=== PATIENT | female | born 1940 | race Caucasian/White ===

== ENCOUNTER → 2017-06-16 | Outpatient (CLI) | payer MEDICARE, BC ==
--- NOTE | 2017-06-16 19:45 | MR ---
EXAMINATION TYPE: MR cervical spine wo con DATE OF EXAM: 06/16/2017 COMPARISON: NONE HISTORY: Radiculopathy TECHNIQUE: Multiplanar, multisequence images of the cervical spine were acquired. C2-C3: No evidence for degenerative disc disease. No disc bulge/herniation or protrusion. No Canal stenosis. Foramina are patent bilaterally. C3-C4: Mild disc bulging. No Canal stenosis. No foraminal encroachment. Facet arthropathy noted with mild bilateral uncovertebral joint hypertrophy and mild right-sided foraminal encroachment. C4-C5: Degenerative disc disease. There is bilateral uncovertebral joint hypertrophy and facet arthro ino. Mild right-sided foraminal encroachment. No Canal stenosis. Mild disc bulging noted. C5-C6: Moderate degenerative disc disease. Minimal broad-based central disc bulging seen. Hypertrophy of the ligamentum flavum noted. Uncovertebral joint hypertrophy greater on the right. C6-C7: Moderate degenerative disc disease. There is mild right paracentral broad-based disc protrusio n with effacement of thecal sac.. C7-T1: Neural foramina are patent. No Canal stenosis. No disc herniation. Mild diffuse central disc b ulging. Cervical segments are intact. There is normal alignment. Cervical spinal cord is of normal signal. Craniovertebral junction relationships are within normal limits. Nerve root sleeve diverticulum at T1-T2 IMPRESSION: 1. Multilevel degenerative disc disease with most marked findings at C5-6 and C6-C7. 2. Multilevel disc bulging with broad-based right paracentral disc protrusion C6-C7 resulting in mild effacement of thecal sac.
== END | disposition home or self-care (01) ==
LOC: RADMRIMAIN 10:48
PROVIDERS: ATTEND Psychiatry & Neurology Neurology
DX: M50.123 Cervical disc disorder at C6-C7 level with radiculopathy (principal)
CPT/HCPCS: 72141

== ENCOUNTER 2020-03-14 15:55 | Observation (INO) | payer MEDICARE, BC ==
--- NOTE | 2020-03-14 16:04 | ED ---
General Adult HPI - General Chief complaint: Chest Pain Stated complaint: Chest pain Time Seen by Provider: 03/14/20 15:58 Source: patient, EMS Mode of arrival: EMS Limitations: no limitations - History of Present Illness Initial comments: Patient presents the ED by ambulance for evaluation with her son at bedside. Patient states that she has had intermittent left-sided chest pressure since last night. Patient states that her chest pain radiates to her left arm and left neck. Patient also admits to having associated dyspnea. Patient is also complaining of having left buttock pain that radiates down her left leg for the past few days. Patient has a history of cardiac bypass. Patient denies trauma or injury, fever or chills, headache, focal numbness/weakness/neuro deficit, upper back pain, pleuritic pain, nausea/vomiting/diaphoresis, abdominal pain, urinary symptoms, incontinence/urinary retention, leg or calf swelling or pain, or any other symptoms or complaints. Patient was given aspirin and nitroglycerin by EMS. Patient reports that her chest pain is currently very mild. - Related Data Home Medications Medication Instructions Recorded Confirmed Aspirin 81 mg PO DAILY 08/07/16 08/13/16 Atorvastatin [Lipitor] 20 mg PO HS 08/07/16 08/13/16 Diltiazem Cd [Cardizem CD] 120 mg PO DAILY 08/07/16 08/13/16 Docusate [Colace] 100 mg PO DAILY 08/07/16 08/13/16 FLUoxetine HCL [PROzac] 20 mg PO DAILY 08/07/16 08/13/16 Gabapentin [Neurontin] 300 mg PO TID 08/07/16 08/13/16 Isosorbide Mononitrate ER [Imdur] 30 mg PO DAILY 08/07/16 08/13/16 LORazepam [Ativan] 0.5 mg PO BID PRN 08/07/16 08/13/16 Nitroglycerin Sl Tabs [Nitrostat] 0.4 mg SUBLINGUAL Q5M PRN 08/07/16 08/13/16 Polyethylene Glycol 3350 [Miralax] 17 gm PO DAILY 08/07/16 08/13/16 Sucralfate [Carafate] 1 gm PO ACHS 08/07/16 08/13/16 traMADol HCL [Ultram] 50 mg PO Q6HR PRN 08/07/16 08/13/16 Losartan [Cozaar] 25 mg PO DAILY 08/10/16 08/13/16 Hydrocodone/Acetaminophen [[place] 1 - 2 tab PO Q6HR PRN 08/13/16 08/13/16 5-325] methylPREDNISolone [Medrol Dose 4 mg PO DIRECTED 08/16/16 08/16/16 Pack] Previous Rx's Medication Instructions Recorded Dicyclomine [Bentyl] 10 mg PO TID PRN #20 capsule 08/09/16 Pantoprazole [Protonix] 40 mg PO AC-BRKFST #30 tablet. 08/09/16 Clindamycin HCl 300 mg PO Q12HR #14 cap 08/11/16 Azithromycin [Zithromax Tri-Jadon] 500 mg PO DAILY #3 tab 08/16/16 Allergies Allergy/AdvReac Type Severity Reaction Status Date / Time Penicillins Allergy Rash/Hives Verified 03/14/20 16:01 Review of Systems ROS Statement: Those systems with pertinent positive or pertinent negative responses have been documented in the HPI. ROS Other: All systems not noted in ROS Statement are negative. Past Medical History Past Medical History: Chest Pain / Angina, GERD/Reflux, Hearing Disorder / Deafness, Hyperlipidemia, Hypertension Additional Past Medical History / Comment(s): IBS, diverticulosis, History of Any Multi-Drug Resistant Organisms: None Reported Past Surgical History: Cholecystectomy, Heart Catheterization, Heart Cat heterization With Stent, Hysterectomy, Joint Replacement Additional Past Surgical History / Comment(s): L knee replacement 2012, pilonidal cyst removal Past Anesthesia/Blood Transfusion Reactions: No Reported Reaction Date of Last Stent Placement:: 2008 Past Psychological History: Anxiety Smoking Status: Current every day smoker Past Alcohol Use History: None Reported Past Drug Use History: None Reported - Past Family History Father Family Medical History: CVA/TIA Additional Family Medical History / Comment(s): MOTHER ID WELL SIBLINGS WITH ID OR CAD Mother Family Medical History: Myocardial Infarction (ID) Brother(s) Family Medical History: Cancer Sister(s) Family Medical History: Cancer General Exam Limitations: no limitations General appearance: alert, in no apparent distress Head exam: Present: atraumatic, normocephalic Eye exam: Present: normal appearance, EOMI ENT exam: Present: mucous membranes moist Neck exam: Present: other (Trachea is in midline) Respiratory exam: Present: normal lung sounds bilaterally. Absent: respiratory distress, wheezes, rales, rhonchi, stridor, chest wall tenderness Cardiovascular Exam: Present: regular rate, normal rhythm, normal heart sounds, other (Normal radial pulses bilaterally) GI/Abdominal exam: Present: soft. Absent: distended, tenderness, guarding Extremities exam: Present: full ROM. Absent: tenderness, pedal edema, calf tenderness Back exam: Present: normal inspection, full ROM. Absent: tenderness Neurological exam: Present: alert, oriented X3, CN II-XII intact, other (Patient has no evidence of saddle anesthesia or lower extremity neurological deficit on exam). Absent: motor sensory deficit Psychiatric exam: Present: anxious Skin exam: Present: warm, dry, intact, normal color Course Vital Signs 03/14/20 03/14/20 15:56 16:01 Temperature 98.5 F Pulse Rate 59 L Respiratory 18 Rate Blood Pressure 178/83 O2 Sat by Pulse 97 Oximetry - Reevaluation(s) Reevaluation #1: 03/14/20 17:15 Case, H&P, test results and ED/EMS management were discussed with Dr. Irizarry. He recommends placing an order for cardiology consultation. He has no further recommendations at this time. 03/14/20 17:18 Patient states that her pain has now improved, and she denies development of any new symptoms while in the ED. Patient remains alert and breathing comfortably. Patient is aware of her test results, and she agrees with hospital admission at this time. EKG Findings - EKG Comments: EKG Findings:: Sinus bradycardia, ventricular rate of 59 bpm, no ectopy, normal MN and QRS intervals, normal QT interval, normal axis, incomplete right bundle branch block, nonspecific T-wave abnormality Medical Decision Making - Medical Decision Making Patient's EKG is nonischemic in appearance at this time. Patient's chest x-ray shows no acute abnormality. Patient's troponin is negative. Patient has a heart score 5. Will admit the patient to the hospital for further evaluation of her chest pain. Dr. Irizarry has accepted hospital admission. - Lab Data Result diagrams: 03/14/20 16:04 03/14/20 15:59 Lab Results 03/14/20 03/14/20 03/14/20 Range/Units 15:59 15:59 15:59 WBC (3.8-10.6) k/uL RBC (3.80-5.40) m/uL Hgb (11.4-16.0) gm/dL Hct (34.0-46.0) % MCV (80.0-100.0) fL MCH (25.0-35.0) pg MCHC (31.0-37.0) g/dL RDW (11.5-15.5) % Plt Count (150-450) k/uL Neutrophils % % Lymphocytes % % Monocytes % % Eosinophils % % Basophils % % Neutrophils # (1.3-7.7) k/uL Lymphocytes # (1.0-4.8) k/uL Monocytes # (0-1.0) k/uL Eosinophils # (0-0.7) k/uL Basophils # (0-0.2) k/uL Hypochromasia PT 10.2 (9.0-12.0) sec INR 1.0 (<1.2) APTT 23.2 (22.0-30.0) sec Sodium 138 (137-145) mmol/L Potassium 4.3 (3.5-5.1) mmol/L Chloride 107 (98-107) mmol/L Carbon Dioxide 25 (22-30) mmol/L Anion Gap 6 mmol/L BUN 25 H (7-17) mg/dL Creatinine 0.85 (0.52-1.04) mg/dL Est GFR (CKD-EPI)AfAm 75 (>60 ml/min/1.73 sqM) Est GFR (CKD-EPI)NonAf 65 (>60 ml/min/1.73 sqM) Glucose 97 (74-99) mg/dL Calcium 9.5 (8.4-10.2) mg/dL Magnesium 2.4 H (1.6-2.3) mg/dL Total Bilirubin 0.4 (0.2-1.3) mg/dL AST 20 (14-36) U/L ALT 12 (4-34) U/L Alkaline Phosphatase 77 (38-126) U/L Troponin I <0.012 (0.000-0.034) ng/mL NT-Pro-B Natriuret Pep pg/mL Total Protein 6.6 (6.3-8.2) g/dL Albumin 3.9 (3.5-5.0) g/dL 03/14/20 03/14/20 Range/Units 15:59 16:04 WBC 6.4 (3.8-10.6) k/uL RBC 4.68 (3.80-5.40) m/uL Hgb 12.0 (11.4-16.0) gm/dL Hct 38.6 (34.0-46.0) % MCV 82.4 (80.0-100.0) fL MCH 25.7 (25.0-35.0) pg MCHC 31.2 (31.0-37.0) g/dL RDW 14.8 (11.5-15.5) % Plt Count 273 (150-450) k/uL Neutrophils % 60 % Lymphocytes % 25 % Monocytes % 7 % Eosinophils % 3 % Basophils % 1 % Neutrophils # 3.9 (1.3-7.7) k/uL Lymphocytes # 1.6 (1.0-4.8) k/uL Monocytes # 0.5 (0-1.0) k/uL Eosinophils # 0.2 (0-0.7) k/uL Basophils # 0.0 (0-0.2) k/uL Hypochromasia Slight PT (9.0-12.0) sec INR (<1.2) APTT (22.0-30.0) sec Sodium (137-145) mmol/L Potassium (3.5-5.1) mmol/L Chloride (98-107) mmol/L Carbon Dioxide (22-30) mmol/L Anion Gap mmol/L BUN (7-17) mg/dL Creatinine (0.52-1.04) mg/dL Est GFR (CKD-EPI)AfAm (>60 ml/min/1.73 sqM) Est GFR (CKD-EPI)NonAf (>60 ml/min/1.73 sqM) Glucose (74-99) mg/dL Calcium (8.4-10.2) mg/dL Magnesium (1.6-2.3) mg/dL Total Bilirubin (0.2-1.3) mg/dL AST (14-36) U/L ALT (4-34) U/L Alkaline Phosphatase (38-126) U/L Troponin I (0.000-0.034) ng/mL NT-Pro-B Natriuret Pep 338 pg/mL Total Protein (6.3-8.2) g/dL Albumin (3.5-5.0) g/dL - Radiology Data Radiology results: report reviewed (Chest x-ray shows chronic changes without acute cardiopulmonary process) Disposition Clinical Impression: Chest pain, Sciatica Disposition: ADMITTED IP TO THIS [facility] Condition: Stable Is patient prescribed a controlled substance at d/c from ED?: No Referrals: Forest Suresh DO [Primary Care Provider] - 1-2 days Time of Disposition: 17:16
[2020-03-14] MEDS ORDERED: MORPHINE SULFATE 2 MG/ML SYRINGE IVP STA (16:14)
[2020-03-14] MEDS ORDERED: ONDANSETRON 4 MG/2 ML VIAL IVP STA (16:15)
[2020-03-14 16:26] LABS: Albumin 3.9 g/dL (3.5-5.0); Calcium 9.5 mg/dL (8.4-10.2); Magnesium 2.4 mg/dL (1.6-2.3); Potassium 4.3 mmol/L (3.5-5.1); Total Bilirubin 0.4 mg/dL (0.2-1.3); Total Protein 6.6 g/dL (6.3-8.2)
[2020-03-14 16:27] LABS: Basophils % (A) 1 %; Eosinophils # (A) 0.2 k/uL (0-0.7); Eosinophils % (A) 3 %; HCT 38.6 % (34.0-46.0); Hypochromasia Slight; Lymphocytes # (A) 1.6 k/uL (1.0-4.8); Lymphocytes % (A) 25 %; MCH 25.7 pg (25.0-35.0); MCHC 31.2 g/dL (31.0-37.0); MCV 82.4 fL (80.0-100.0); Mean Platelet Volume 8.2; Monocytes # (A) 0.5 k/uL (0-1.0); Monocytes % (A) 7 %; Neutrophils # (A) 3.9 k/uL (1.3-7.7); Neutrophils % (A) 60 %; Platelet Count 273 k/uL (150-450); RBC 4.68 m/uL (3.80-5.40); RDW 14.8 % (11.5-15.5); WBC 6.4 k/uL (3.8-10.6)
[2020-03-14 16:32] LABS: Partial Thromboplastin Time 23.2 sec (22.0-30.0); Prothrombin Time 10.2 sec (9.0-12.0)
--- NOTE | 2020-03-14 16:37 | XR ---
EXAMINATION TYPE: XR chest 2V DATE OF EXAM: 03/14/2020 COMPARISON: 10/14/2015 HISTORY: 79-year-old female with chest pain TECHNIQUE: AP and lateral views FINDINGS: Median sternotomy wires are present. Heart upper limits of normal in size. Mild interstitial prominen ce is unchanged. No consolidation or pleural effusion. IMPRESSION: Chronic changes without acute cardiopulmonary process.
[2020-03-14] MEDS ORDERED: NITROGLYCERIN OINT 1 INCH/GM PACKET TOPICAL STA (16:48)
[2020-03-14] MEDS ORDERED: NALOXONE 0.4 MG/ML 1 ML VIAL IV PRN (17:16)
[2020-03-14] MEDS ORDERED: MORPHINE SULFATE 4 MG/ML SYRINGE IVP STA (17:41)
[2020-03-14] MEDS ORDERED: Acetaminophen-Codeine 300-30mg TAB PO PRN (21:04)
[2020-03-14] MEDS ORDERED: METOCLOPRAMIDE 5 MG TAB PO PRN (21:04)
[2020-03-14] MEDS ORDERED: FLUTICASONE 50MCG/SPRAY NASAL 16GM EA NOSTRIL PRN (21:04)
[2020-03-14] MEDS ORDERED: ALBUTEROL NEBULIZED 2.5 MG/3 ML INHALATION PRN (21:04)
[2020-03-14] MEDS: carvediloL 3.125 MG TAB PO SCH (23:19)
[2020-03-14] MEDS: CLOPIDOGREL 75 MG TAB PO SCH (23:19)
[2020-03-14] MEDS: ATORVASTATIN 20 MG TAB PO SCH (23:19)
[2020-03-14] MEDS: GABAPENTIN 300 MG CAP PO SCH (23:19)
[2020-03-14] MEDS: APIXABAN 5 MG TAB PO SCH (23:19)
[2020-03-14] MEDS: ZOLPIDEM 5 MG TAB PO SCH (23:20)
--- NOTE | 2020-03-15 01:15 | P.HPIM ---
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 Patient states that she felt left retrosternal pressure- like sensation which is radiating down to her left arm and also to the back and all the way down to her left sciatic nerve. Patient states that she also had shooting down pain from her hip. Patient states that she had episodes of vomiting x2. Denied any headache. Patient states that she always had dizziness and lightheadedness. She feels very weak and depressed. Patient otherwise denied any complaints of fall or trauma. No fever no chills. No focal weakness. No dysuria or hematuria. No cough or sputum production. Denies any shortness of breath. Patient was given aspirin and nitroglycerin sublingual. Currently denies any c omplaints of chest pain. Chest x-ray showed chronic changes without acute cardiopulmonary process EKG showed sinus bradycardia with heart rate 59. Laboratory data showed WBC 6.4, hemoglobin 12.0 and platelets 273 INR 1.0 Sodium 138, potassium 4.3, chloride 103, BUN 24 and creatinine 0.85 Liver enzymes are within normal limits. Troponin x2- proBNP 338 blood pressure was 178/83 on admission. Review of Systems Constitutional: Patient denies any fever or chills . No generalized weakness or weight loss. Abdomen: Patient denied nausea vomiting and diarrhea and abdominal pain. Cardiovascular: Patient complains of chest pain without shortness of breath. no palpitations. No leg swelling. Respiratory: patient denied any cough is from production. No shortness of breath Neurologic: Patient denied any numbness or tingling headache. Musculoskeletal: Patient denies any complaints of joint swelling or deformity. Left sciatic nerve pain. Skin: Negative Psychiatric: Negative Endocrine: No heat or cold intolerance. No recent weight gain. Genitourinary: No dysuria or hematuria. All other 14 point ROS negative except the above Past Medical History Past Medical History: Chest Pain / Angina, GERD/Reflux, Hearing Disorder / Deafness, Hyperlipidemia, Hypertension Additional Past Medical History / Comment(s): IBS, diverticulosis, History of Any Multi-Drug Resistant Organisms: None Reported Past Surgical History: Cholecystectomy, Heart Catheterization, Heart Catheterization With Stent, Hysterectomy, Joint Replacement Additional Past Surgical History / Comment(s): L knee replacement 2012, pilonidal cyst removal Past Anesthesia/Blood Transfusion Reactions: No Reported Reaction Date of Last Stent Placement:: 2008 Past Psychological History: Anxiety Smoking Status: Current every day smoker Past Alcohol Use History: None Reported Past Drug Use History: None Reported - Past Family History Father Family Medical History: CVA/TIA Additional Family Medical History / Comment(s): MOTHER OK WELL SIBLINGS WITH OK OR CAD Mother Family Medical History: Myocardial Infarction (OK) Brother(s) Family Medical History: Cancer Sister(s) Family Medical History: Cancer Medications and Allergies Home Medications Medication Instructions Recorded Confirmed Type Gabapentin [Neurontin] 300 mg PO TID 08/07/16 03/14/20 History Acetaminophen-Codeine 300-30mg 1 tab PO Q6H PRN 03/14/20 03/14/20 History [Tylenol w/codeine #3] Albuterol Sulfate [Albuterol 1 puff PO RT-Q6H PRN 03/14/20 03/14/20 History Sulfate Hfa] Apixaban [Eliquis] 5 mg PO BID 03/14/20 03/14/20 History Carvedilol [Coreg] 3.125 mg PO BID 03/14/20 03/14/20 History Clopidogrel Bisulfate [Plavix] 75 mg PO DAILY 03/14/20 03/14/20 History Fluticasone Nasal [place] [Flonase 1 spray EA NOSTRIL DAILY PRN 03/14/20 03/14/20 History Nasal [place]] Loratadine [Claritin] 10 mg PO DAILY 03/14/20 03/14/20 History Metoclopramide HCl [Reglan] 5 mg PO TID PRN 03/14/20 03/14/20 History Omeprazole 20 mg PO DAILY 03/14/20 03/14/20 History Zolpidem Tartrate [Ambien] 5 mg PO HS 03/14/20 03/14/20 History Allergies Allergy/AdvReac Type Severity Reaction Status Date / Time Penicillins Allergy Rash/Hives Verified 03/14/20 20:27 Physical Exam Vitals: Vital Signs Temp Pulse Pulse Resp BP BP Pulse Ox 03/14/20 18:47 97.7 F 57 L 14 197/76 100 03/14/20 18:03 98 F 68 18 182/77 98 03/14/20 17:32 61 18 191/91 98 03/14/20 16:01 59 L 18 178/83 97 03/14/20 15:56 98.5 F Intake and Output 03/14/20 03/14/20 03/14/20 06:59 14:59 22:59 Other: Weight 67.585 kg PHYSICAL EXAMINATION: Patient is lying in the bed comfortably, no acute distress, awake alert and oriented.. HEENT: Normocephalic. Neck is supple. Pupils reactive. Nostrils clear. Oral cavity is moist. Ears reveal no drainage. Neck reveals no JVD, carotid bruits, or thyromegaly. CHEST EXAMINATION: Trachea is central. Symmetrical expansion. Lung hess clear to auscultation and percussion. CARDIAC: Normal S1, S2 with no gallops. No murmurs ABDOMEN: Soft. Bowel sounds normal. No organomegaly. No abdominal bruits. Extremities: reveal no edema. No clubbing or cyanosis Neurologically awake, alert, oriented x3 with well-coordinated movements. No focal deficits noted Skin: No rash or skin lesions. Psychiatric: Coperative. Nonsuicidal Musculoskeletal: No joint swelling or deformity. Normal range of motion. Results CBC & Chem 7: 03/15/20 06:21 03/15/20 06:22 Labs: Abnormal Lab Results - Last 24 Hours (Table) 03/14/20 Range/Units 15:59 BUN 25 H (7-17) mg/dL Magnesium 2.4 H (1.6-2.3) mg/dL Thrombosis Risk Factor Assmnt - DVT/VTE Prophylaxis DVT/VTE Prophylaxis: Pharmacologic Prophylaxis ordered Assessment and Plan Assessment: Atypical chest pain with a known history of coronary artery disease. Rule out ACS. Paroxysmal atrial fibrillation on anticoagulation with Eliquis. Left sciatic nerve pain. lumbar radiculopathy, lumbar spinal stenosis Chronic back pain and weakness. Coronary artery disease history of bypass graft and stent placement Uncontrolled hypertension GERD Hyperlipidemia Peripheral vascular disease with history of femoral stent placement History of CVA/TIA DVT prophylaxis patient is already on anticoagulation with Eliquis Plan: Patient will be continued on telemetry monitoring. Serial EKG and troponin x2-. Continue with home medications and titrate blood pressure medications. Cardiology was consulted. Continue with pain management with Tylenol 3. Further recommendations based on clinical course Time with Patient: Greater than 30
[2020-03-15] MEDS ORDERED: KETOROLAC 30 MG/ML 1 ML VIAL IVP STA (05:04)
[2020-03-15] MEDS: PANTOPRAZOLE 40 MG TABLET PO SCH (06:50)
[2020-03-15 07:25] LABS: Basophils # (A) 0.1 k/uL (0-0.2); Basophils % (A) 1 %; Eosinophils # (A) 0.4 k/uL (0-0.7); Eosinophils % (A) 6 %; HCT 38.4 % (34.0-46.0); HGB 11.3 gm/dL (11.4-16.0); Hypochromasia Moderate; Lymphocytes # (A) 1.9 k/uL (1.0-4.8); Lymphocytes % (A) 26 %; MCH 24.8 pg (25.0-35.0); MCHC 29.4 g/dL (31.0-37.0); MCV 84.4 fL (80.0-100.0); Mean Platelet Volume 8.6; Monocytes # (A) 0.7 k/uL (0-1.0); Monocytes % (A) 9 %; Neutrophils # (A) 4.1 k/uL (1.3-7.7); Neutrophils % (A) 55 %; Platelet Count 222 k/uL (150-450); RBC 4.55 m/uL (3.80-5.40); RDW 14.9 % (11.5-15.5); WBC 7.5 k/uL (3.8-10.6)
[2020-03-15 07:31] LABS: Albumin 3.4 g/dL (3.5-5.0); Calcium 9.1 mg/dL (8.4-10.2); Potassium 4.9 mmol/L (3.5-5.1); Total Bilirubin 0.3 mg/dL (0.2-1.3)
[2020-03-15] MEDS ORDERED: Acetaminophen-Codeine 300-30mg TAB PO PRN (08:00)
[2020-03-15] MEDS ORDERED: DILTIAZEM CD 120 MG CAP.ER.24H PO SCH (09:00)
[2020-03-15] MEDS ORDERED: ISOSORBIDE MONONITRATE ER 30 MG TAB.ER.24H PO SCH (09:00)
[2020-03-15] MEDS ORDERED: LOSARTAN 25 MG TAB PO SCH (09:00)
[2020-03-15] MEDS: LORATADINE 10 MG TAB PO SCH (09:10)
[2020-03-15] MEDS: FLUoxetine HCL 20 MG CAP PO SCH ×2 (09:10→09:16)
[2020-03-15] MEDS: carvediloL 3.125 MG TAB PO SCH ×2 (09:10→17:05)
[2020-03-15] MEDS: APIXABAN 5 MG TAB PO SCH ×2 (09:10→21:39)
[2020-03-15] MEDS: GABAPENTIN 300 MG CAP PO SCH ×3 (09:10→21:39)
[2020-03-15] MEDS: CLOPIDOGREL 75 MG TAB PO SCH (09:10)
[2020-03-15] MEDS ORDERED: ONDANSETRON 4 MG/2 ML VIAL IVP STA (09:58)
--- NOTE | 2020-03-15 10:30 | P.CRDCN ---
History of Present Illness History of present illness: HISTORY OF PRESENTING ILLNESS This is a pleasant 79-year-old female past medical history significant for coronary artery disease status post bypass grafting approximately 3 years a go at [facility], paroxysmal atrial fibrillation on long-term anticoagulation, hypertension, dyslipidemia, peripheral vascular disease and chronic nicotine dependence. She follows in the office with Dr. Driver out of [facility]. We have been asked to see in consultation for chest pain. She states for the previous couple of weeks she has not been feeling well. She feels increasingly weak, worsening dyspnea, pain in the left hip that radiates down the left leg and discomfort in the left precordial region. Her chest discomfort is exacerbated by deep inspiration or movement of her torso. It is mildly reproducible on deep palpation. DIAGNOSTICS EKG reveals sinus bradycardia heart rate of 59 with right bundle branch block. Chest xray mild interstitial prominence with no acute cardiopulmonary process. Laboratory reviewed, WBC 7.5, hemoglobin 11.3, platelets 222, sodium 138, potassium 4.9, creatinine 0.94, magnesium 2.4, cardiac enzymes negative 3, NT proBNP 338, TSH 3.88. Current cardiac medications include Eliquis 5 mg twice a day, carvedilol 3.125 mg twice a day, Plavix 75 mg daily. REVIEW OF SYSTEMS At the time of my exam: CONSTITUTIONAL: Denies fever or chills. CARDIOVASCULAR: Denies chest pain, shortness of breath, orthopnea, PND or palpitations. RESPIRATORY: Denies cough. GASTROINTESTINAL: Denies abdominal pain, diarrhea, constipation, nausea or vomiting. MUSCULOSKELETAL: Complains of discomfort in the left hip shooting down the left leg. NEUROLOGIC: Denies numbness, tingling or weakness. ENDOCRINE: Denies fatigue, weight change, polydipsia or polyurina. GENITOURINARY: Denies burning, hematuria or urgency with micturation. HEMATOLOGIC: Denies history of anemia or bleeding. PHYSICAL EXAMINATION Blood pressure 163/73 heart rate 53 afebrile and maintaining oxygen saturation on nasal cannula. CONSTITUTIONAL: No apparent distress. HEENT: Head is normocephalic. Pupils are equal, round. Sclerae anicteric. Mucous membranes of the mouth are moist. No JVD. Right carotid bruit. CHEST EXAMINATION: Lungs are clear to auscultation. Positive left anterior chest wall tenderness is noted on palpation and with deep breathing. Diminished bilaterally. HEART EXAMINATION: Regular rate and rhythm. S1, S2 heard. No murmurs, gallops or rub. ABDOMEN: Soft, nontender. Positive bowel sounds. EXTREMITIES: 2+ peripheral pulses, no lower extremity edema and no calf tenderness. NEUROLOGIC EXAMINATION: Patient is awake, alert and oriented x3. ASSESSMENT Pain, pleuritic. Atypical for angina. An acute coronary event has been ruled out. Left hip pain with radiation down the left leg suggestive of sciatica Coronary artery disease status post bypass grafting Paroxysmal atrial fibrillation on long-term anticoagulation currently maintaining sinus mechanism Peripheral vascular disease, patient states she has A 70% blockage of her carotid arteries Hypertension Dyslipidemia Chronic nicotine dependence PLAN An acute coronary event has been ruled out. Pain is pleuritic and atypical for angina. Check a d-dimer. Ongoing medical management and evaluation of multiple complaints. No further cardiac work-up at this time. Thank you kindly for this consultation. Nurse Practitioner note has been reviewed, I agree with a documented findings and plan of care. Patient was seen and examined. Past Medical History Past Medical History: Chest Pain / Angina, GERD/Reflux, Hearing Disorder / Deafness, Hyperlipidemia, Hypertension Additional Past Medical History / Comment(s): IBS, diverticulosis, History of Any Multi-Drug Resistant Organisms: None Reported Past Surgical History: Cholecystectomy, Heart Catheterization, Heart Catheterization With Stent, Hysterectomy, Joint Replacement Additional Past Surgical History / Comment(s): L knee replacement 2012, pilonidal cyst removal Past Anesthesia/Blood Transfusion Reactions: No Reported Reaction Date of Last Stent Placement:: 2008 Past Psychological History: Anxiety Smoking Status: Current every day smoker Past Alcohol Use History: None Reported Past Drug Use History: None Reported - Past Family History Father Family Medical History: CVA/TIA Additional Family Medical History / Comment(s): MOTHER ID WELL SIBLINGS WITH ID OR CAD Mother Family Medical History: Myocardial Infarction (ID) Brother(s) Family Medical History: Cancer Sister(s) Family Medical History: Cancer Medications and Allergies Home Medications Medication Instructions Recorded Confirmed Type Gabapentin [Neurontin] 300 mg PO TID 08/07/16 03/14/20 History Acetaminophen-Codeine 300-30mg 1 tab PO Q6H PRN 03/14/20 03/14/20 History [Tylenol w/codeine #3] Albuterol Sulfate [Albuterol 1 puff PO RT-Q6H PRN 03/14/20 03/14/20 History Sulfate Hfa] Apixaban [Eliquis] 5 mg PO BID 03/14/20 03/14/20 History Carvedilol [Coreg] 3.125 mg PO BID 03/14/20 03/14/20 History Clopidogrel Bisulfate [Plavix] 75 mg PO DAILY 03/14/20 03/14/20 History Fluticasone Nasal [place] [Flonase 1 spray EA NOSTRIL DAILY PRN 03/14/20 03/14/20 History Nasal [place]] Loratadine [Claritin] 10 mg PO DAILY 03/14/20 03/14/20 History Metoclopramide HCl [Reglan] 5 mg PO TID PRN 03/14/20 03/14/20 History Omeprazole 20 mg PO DAILY 03/14/20 03/14/20 History Zolpidem Tartrate [Ambien] 5 mg PO HS 03/14/20 03/14/20 History Allergies Allergy/AdvReac Type Severity Reaction Status Date / Time Penicillins Allergy Rash/Hives Verified 03/14/20 20:27 Physical Exam Vitals: Vital Signs Temp Pulse Pulse Resp BP BP Pulse Ox 03/15/20 03:00 98 F 51 L 16 97/53 99 03/14/20 21:00 97.9 F 57 L 18 169/54 99 03/14/20 18:47 97.7 F 57 L 14 197/76 100 03/14/20 18:03 98 F 68 18 182/77 98 03/14/20 17:32 61 18 191/91 98 03/14/20 16:01 59 L 18 178/83 97 03/14/20 15:56 98.5 F Intake and Output 03/14/20 03/15/20 03/15/20 22:59 06:59 14:59 Other: Voiding Method Toilet Toilet # Voids 1 1 Weight 67.585 kg Results 03/15/20 06:21 03/15/20 06:22 Cardiac Enzymes 03/14/20 03/14/20 03/14/20 Range/Units 15:59 15:59 18:45 AST 20 (14-36) U/L Troponin I <0.012 <0.012 (0.000-0.034) ng/mL 03/14/20 03/15/20 Range/Units 22:15 06:22 AST 19 (14-36) U/L Troponin I <0.012 (0.000-0.034) ng/mL Coagulation 03/14/20 Range/Units 15:59 PT 10.2 (9.0-12.0) sec APTT 23.2 (22.0-30.0) sec CBC 03/14/20 03/15/20 Range/Units 16:04 06:21 WBC 6.4 7.5 (3.8-10.6) k/uL RBC 4.68 4.55 (3.80-5.40) m/uL Hgb 12.0 11.3 L (11.4-16.0) gm/dL Hct 38.6 38.4 (34.0-46.0) % Plt Count 273 222 (150-450) k/uL Comprehensive Metabolic Panel 03/14/20 03/15/20 Range/Units 15:59 06:22 Sodium 138 138 (137-145) mmol/L Potassium 4.3 4.9 (3.5-5.1) mmol/L Chloride 107 110 H (98-107) mmol/L Carbon Dioxide 25 23 (22-30) mmol/L BUN 25 H 24 H (7-17) mg/dL Creatinine 0.85 0.94 (0.52-1.04) mg/dL Glucose 97 90 (74-99) mg/dL Calcium 9.5 9.1 (8.4-10.2) mg/dL AST 20 19 (14-36) U/L ALT 12 10 (4-34) U/L Alkaline Phosphatase 77 69 (38-126) U/L Total Protein 6.6 6.0 L (6.3-8.2) g/dL Albumin 3.9 3.4 L (3.5-5.0) g/dL Current Medications Generic Name Dose Route Start Last Admin Trade Name Freq PRN Reason Stop Dose Admin Acetaminophen/Codeine Phosphate 1 each 03/15/20 08:00 Tylenol #3 PO Q12H PRN Pain Albuterol Sulfate 2.5 mg 03/14/20 21:04 03/15/20 07:58 Ventolin Nebulized INHALATION 2.5 mg RT-Q6H PRN Administration Shortness Of Breath Apixaban 5 mg 03/14/20 21:15 03/14/20 23:19 Eliquis PO 5 mg BID CORTES Administration Atorvastatin Calcium 20 mg 03/14/20 21:00 03/14/20 23:19 Lipitor PO 20 mg HS CORTES Administration Carvedilol 3.125 mg 03/14/20 21:15 03/14/20 23:19 Coreg PO 3.125 mg AC-BID CORTES Administration Clopidogrel Bisulfate 75 mg 03/14/20 21:15 03/14/20 23:19 Plavix PO 75 mg DAILY [facility] Administration Diltiazem HCl 120 mg 03/15/20 09:00 Cardizem Cd PO DAILY [facility] Fluoxetine HCl 20 mg 03/15/20 09:00 Prozac PO DAILY [facility] Fluticasone Propionate 1 spray 03/14/20 21:04 Flonase Nasal [place] EA NOSTRIL DAILY PRN Allergy Symptoms Gabapentin 300 mg 03/14/20 22:00 03/14/20 23:19 Neurontin PO 300 mg TID [facility] Administration Isosorbide Mononitrate 30 mg 03/15/20 09:00 Imdur PO DAILY [facility] Loratadine 10 mg 03/15/20 09:00 Claritin PO DAILY [facility] Losartan Potassium 25 mg 03/15/20 09:00 Cozaar PO DAILY [facility] Metoclopramide HCl 5 mg 03/14/20 21:04 Reglan PO TID PRN Nausea Naloxone HCl 0.2 mg 03/14/20 17:16 Narcan IV Q2M PRN Opioid Reversal Pantoprazole Sodium 40 mg 03/15/20 07:30 03/15/20 06:50 Protonix PO 40 mg AC-BRKFST [facility] Administration Zolpidem Tartrate 5 mg 03/14/20 21:15 03/14/20 23:20 Ambien PO 5 mg HS [facility] Administration Intake and Output 03/14/20 03/15/20 03/15/20 22:59 06:59 14:59 Other: Voiding Method Toilet Toilet # Voids 1 1 Weight 67.585 kg 03/15/20 06:21 03/15/20 06:22
[2020-03-15 11:33] LABS: Cholesterol 201 mg/dL (<200); HDL Cholesterol 46 mg/dL (40-60); LDL Cholesterol,Calculated 130 mg/dL (0-99); Triglycerides 124 mg/dL (<150)
[2020-03-15] MEDS ORDERED: DICYCLOMINE 10 MG CAP PO PRN (12:48)
[2020-03-15] MEDS ORDERED: ONDANSETRON 4 MG/2 ML VIAL IVP PRN (12:49)
[2020-03-15] MEDS: ATORVASTATIN 20 MG TAB PO SCH (21:39)
[2020-03-15] MEDS: ZOLPIDEM 5 MG TAB PO SCH (21:39)
[2020-03-15] MEDS: Acetaminophen-Codeine 300-30mg TAB PO PRN (21:40)
[2020-03-16] MEDS: CLOPIDOGREL 75 MG TAB PO SCH (09:12)
[2020-03-16] MEDS: APIXABAN 5 MG TAB PO SCH ×2 (09:13→22:15)
[2020-03-16] MEDS: GABAPENTIN 300 MG CAP PO SCH ×3 (09:13→22:14)
[2020-03-16] MEDS: PANTOPRAZOLE 40 MG TABLET PO SCH (09:13)
[2020-03-16] MEDS: LORATADINE 10 MG TAB PO SCH (09:13)
[2020-03-16] MEDS: carvediloL 3.125 MG TAB PO SCH ×2 (09:13→16:05)
[2020-03-16] MEDS: FLUoxetine HCL 20 MG CAP PO SCH (09:13)
[2020-03-16] MEDS: Acetaminophen-Codeine 300-30mg TAB PO PRN ×3 (09:22→22:15)
--- NOTE | 2020-03-16 09:35 | P.PN ---
Subjective HISTORY OF PRESENTING ILLNESS This is a pleasant 79-year-old female past medical history significant for coronary artery disease status post bypass grafting approximately 3 years ago at [facility], paroxysmal atrial fibrillation on long-term anticoagulation, hypertension, dyslipidemia, peripheral vascular disease and chronic nicotine dependence. She follows in the office with Dr. Driver out of [facility]. She is seen and examined laying flat resting comfortably in bed in no acute distress. She denies any further symptoms of chest pain. Breathing is stable. D-dimer 0.38. Blood pressure 122/65 heart rate 96 afebrile maintain ing oxygen saturation on room air. Telemetry tracings have been unremarkable. PHYSICAL EXAMINATION CONSTITUTIONAL: No apparent distress. HEENT: Head is normocephalic. Pupils are equal, round. Sclerae anicteric. Mucous membranes of the mouth are moist. No JVD. Right carotid bruit. CHEST EXAMINATION: Lungs are clear to auscultation. Positive left anterior chest wall tenderness is noted on palpation and with deep breathing. Diminished bilaterally. HEART EXAMINATION: Regular rate and rhythm. S1, S2 heard. No murmurs, gallops or rub. EXTREMITIES: 2+ peripheral pulses, no lower extremity edema and no calf tenderness. ASSESSMENT Pain, pleuritic. Atypical for angina. An acute coronary event has been ruled out. Left hip pain with radiation down the left leg suggestive of sciatica Coronary artery disease status post bypass grafting Paroxysmal atrial fibrillation on long-term anticoagulation currently maintaining sinus mechanism Peripheral vascular disease, patient states she has A 70% blockage of her carotid arteries Hypertension Dyslipidemia Chronic nicotine dependence PLAN Stable from a cardiac perspective. We will continue to follow along as needed. Recommend follow-up with her primary cellar hand upon discharge. Nurse Practitioner note has been reviewed, I agree with a documented findings and plan of care. Patient was seen and examined. Objective - Vital Signs Vital signs: Vital Signs Temp 97.7 F 03/16/20 09:00 Pulse 96 03/16/20 09:00 Resp 16 03/16/20 09:00 BP 122/65 03/16/20 09:00 Pulse Ox 96 03/16/20 09:00 Intake & Output 03/15/20 03/16/20 03/16/20 18:59 06:59 18:59 Intake Total 400 480 Balance 400 480 Intake: Oral 400 480 Other: Voiding Method Toilet Toilet # Voids 4 3 - Labs CBC & Chem 7: 03/15/20 06:21 03/15/20 06:22 Labs: Abnormal Lab Results - Last 24 Hours (Table) 03/15/20 Range/Units 10:23 Cholesterol 201 H (<200) mg/dL LDL Cholesterol, Calc 130 H (0-99) mg/dL
--- NOTE | 2020-03-16 14:05 | CT ---
EXAMINATION TYPE: CT brain wo con DATE OF EXAM: 03/16/2020 COMPARISON: 09/27/2010 HISTORY: 79-year-old female with headache TECHNIQUE: Examination was done in axial plane without intravenous contrast. Coronal and sagittal r econstructions performed. CT DLP: 945.5 mGycm Automated exposure control for dose reduction was used. FINDINGS: There is no evidence of acute intracranial hemorrhage, acute ischemic changes, mass, mass-effect, or extra-axial fluid collection. There is no effacement of cerebral sulci or basal subarachnoid cister ns. There is no hydrocephalus. There is no midline shift. Wheeler-white matter distinction is preserv ed. Rightward nasal septal deviation. Mild mucosal thickening posterior right ethmoid air cells and left sphenoid sinus. Mastoid air cells well pneumatized. Orbits and globes appear intact. Focal encephalomalacia within the left frontotemporal junction is new from 2010. Mild generalized sup ratentorial volume loss, progressed from 2010 as has moderate patchy white matter hypodensities. IMPRESSION: 1. Mild generalized atrophy and moderate patchy changes of chronic small vessel ischemic disease, bot h progressed from 2010. 2. Encephalomalacia at the left frontotemporal junction likely relating to old infarct is also new fr om 2010. 3. No acute intracranial abnormality seen.
[2020-03-16] MEDS: ZOLPIDEM 5 MG TAB PO SCH (22:14)
[2020-03-16] MEDS: ATORVASTATIN 20 MG TAB PO SCH (22:15)
--- NOTE | 2020-03-17 01:19 | P.PN ---
Subjective Progress Note Date: 03/15/20 Principal diagnosis: Atypical chest pain with a known history of coronary artery disease. Ruled out ACS. 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 Patient states that she felt left retrosternal pressure- like sensation which is radiating down to her left arm and also to the back and all the way down to her left sciatic nerve. Patient states that she also had shooting down pain from her hip. Patient states that she had episodes of vomiting x2. Denied any headache. P atient states that she always had dizziness and lightheadedness. She feels very weak and depressed. Patient otherwise denied any complaints of fall or trauma. No fever no chills. No focal weakness. No dysuria or hematuria. No cough or sputum production. Denies any shortness of breath. Patient was given aspirin and nitroglycerin sublingual. Currently denies any complaints of chest pain. Chest x-ray showed chronic changes without acute cardiopulmonary process EKG showed sinus bradycardia with heart rate 59. Laboratory data showed WBC 6.4, hemoglobin 12.0 and platelets 273 INR 1.0 Sodium 138, potassium 4.3, chloride 103, BUN 24 and creatinine 0.85 Liver enzymes are within normal limits. Troponin x2- proBNP 338 blood pressure was 178/83 on admission. 03/15/2020 Patient denied any complaints of chest pain or shortness of today. Complains of abdominal pain and diarrhea on and off. No diarrhea noted as per nursing staff. Patient is complaining of cramping abdominal pain. Also complains of left hip sciatic pain. Patient is very anxious otherwise. Laboratory data reviewed. cardiology recommends no further work-up at this time. Current medications reviewed. Objective - Vital Signs Vital signs: Vital Signs Temp 98.1 F 03/16/20 21:00 Pulse 57 L 03/16/20 21:00 Resp 18 03/16/20 21:00 BP 176/68 03/16/20 21:00 Pulse Ox 94 L 03/16/20 21:00 Intake & Output 03/16/20 03/16/20 03/17/20 06:59 18:59 06:59 Intake Total 720 Balance 720 Intake: Oral 720 Other: Voiding Method Toilet Toilet Toilet # Voids 3 2 - Exam PHYSICAL EXAMINATION: Patient is lying in the bed comfortably, no acute distress, awake alert and oriented.. HEENT: Normocephalic. Neck is supple. Pupils reactive. Nostrils clear. Oral cavity is moist. Ears reveal no drainage. Neck reveals no JVD, carotid bruits, or thyromegaly. CHEST EXAMINATION: Trachea is central. Symmetrical expansion. Lung hess clear to auscultation and percussion. CARDIAC: Normal S1, S2 with no gallops. No murmurs ABDOMEN: Soft. Bowel sounds normal. No organomegaly. No abdominal bruits. Extremities: reveal no edema. No clubbing or cyanosis Neurologically awake, alert, oriented x3 with well-coordinated movements. No focal deficits noted Skin: No rash or skin lesions. Psychiatric: Coperative. Nonsuicidal. anxious. Musculoskeletal: No joint swelling or deformity. Normal range of motion. - Labs CBC & Chem 7: 03/15/20 06:21 03/15/20 06:22 Assessment and Plan Assessment: Atypical chest pain with a known history of coronary artery disease. Ruled out ACS. Cramping abdominal pain possible IBS. Paroxysmal atrial fibrillation on anticoagulation with Eliquis. Left sciatic nerve pain. lumbar radiculopathy, lumbar spinal stenosis Chronic back pain and weakness. Coronary artery disease history of bypass graft and stent placement Uncontrolled hypertension GERD Hyperlipidemia Peripheral vascular disease with history of femoral stent placement History of CVA/TIA DVT prophylaxis patient is already on anticoagulation with Eliquis Plan: Patient will be continued on telemetry monitoring. Serial EKG and troponin x2-. Continue with home medications and titrate blood pressure medications. Cardiology has seen the pt. no Intervention recommended. . Continue with pain management with Tylenol 3. Added Bentyl for abdominal cramping pain. Will order C. difficile if continues to have diarrhea. Further recommendations based on clinical course Time with Patient: Greater than 30
--- NOTE | 2020-03-17 01:22 | P.PN ---
Subjective Progress Note Date: 03/16/20 Principal diagnosis: Atypical chest pain with a known history of coronary artery disease. Ruled out ACS. 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 Patient states that she felt left retrosternal pressure- like sensation which is radiating down to her left arm and also to the back and all the way down to her left sciatic nerve. Patient states that she also had shooting down pain from her hip. Patient states that she had episodes of vomiting x2. Denied any headache. P atient states that she always had dizziness and lightheadedness. She feels very weak and depressed. Patient otherwise denied any complaints of fall or trauma. No fever no chills. No focal weakness. No dysuria or hematuria. No cough or sputum production. Denies any shortness of breath. Patient was given aspirin and nitroglycerin sublingual. Currently denies any complaints of chest pain. Chest x-ray showed chronic changes without acute cardiopulmonary process EKG showed sinus bradycardia with heart rate 59. Laboratory data showed WBC 6.4, hemoglobin 12.0 and platelets 273 INR 1.0 Sodium 138, potassium 4.3, chloride 103, BUN 24 and creatinine 0.85 Liver enzymes are within normal limits. Troponin x2- proBNP 338 blood pressure was 178/83 on admission. 03/15/2020 Patient denied any complaints of chest pain or shortness of today. Complains of abdominal pain and diarrhea on and off. No diarrhea noted as per nursing staff. Patient is complaining of cramping abdominal pain. Also complains of left hip sciatic pain. Patient is very anxious otherwise. Laboratory data reviewed. cardiology recommends no further work-up at this time. 03/16/2020 Today patient denied any complaints of chest pain or shortness breath. Hemodynamically stable. D-dimer is not elevated. Cleared from cardiology standpoint. Patient is saturating well on room air. Otherwise patient is complaining of left-sided headache and also anxious. Also complains of post nasal drip. Does not want to be discharged home today. Denied any complaints of abdominal pain today. No bowel movement last 2 days. Anticipate discharge in the next 24 hours with more clinical improvement. Current medications reviewed. Objective - Vital Signs Vital signs: Vital Signs Temp 98.1 F 03/16/20 21:00 Pulse 57 L 03/16/20 21:00 Resp 18 03/16/20 21:00 BP 176/68 03/16/20 21:00 Pulse Ox 94 L 03/16/20 21:00 Intake & Output 03/16/20 03/16/20 03/17/20 06:59 18:59 06:59 Intake Total 720 Balance 720 Intake: Oral 720 Other: Voiding Method Toilet Toilet Toilet # Voids 3 2 - Exam PHYSICAL EXAMINATION: Patient is lying in the bed comfortably, no acute distress, awake alert and oriented.. HEENT: Normocephalic. Neck is supple. Pupils reactive. Nostrils clear. Oral cavity is moist. Ears reveal no drainage. Neck reveals no JVD, carotid bruits, or thyromegaly. CHEST EXAMINATION: Trachea is central. Symmetrical expansion. Lung hess clear to auscultation and percussion. CARDIAC: Normal S1, S2 with no gallops. No murmurs ABDOMEN: Soft. Bowel sounds normal. No organomegaly. No abdominal bruits. Extremities: reveal no edema. No clubbing or cyanosis Neurologically awake, alert, oriented x3 with well-coordinated movements. No focal deficits noted Skin: No rash or skin lesions. Psychiatric: Coperative. Nonsuicidal. anxious. Musculoskeletal: No joint swelling or deformity. Normal range of motion. - Labs CBC & Chem 7: 03/15/20 06:21 03/15/20 06:22 Assessment and Plan Assessment: Atypical chest pain with a known history of coronary artery disease. Ruled out ACS. Cramping abdominal pain possible IBS. Paroxysmal atrial fibrillation on anticoagulation with Eliquis. Left sciatic nerve pain. lumbar radiculopathy, lumbar spinal stenosis Chronic back pain and weakness. Coronary artery disease history of bypass graft and stent placement Uncontrolled hypertension GERD Hyperlipidemia Peripheral vascular disease with history of femoral stent placement History of CVA/TIA DVT prophylaxis patient is already on anticoagulation with Eliquis Plan: Patient will be continued on telemetry monitoring. Serial EKG and troponin x2-. Continue with home medications and titrate blood pressure medications. Cardiology has seen the pt. no Intervention recommended. . Continue with pain management with Tylenol 3. Added Bentyl for abdominal cramping pain. Will order C. difficile if continues to have diarrhea. CT head showed no acute process. Further recommendations based on clinical course Time with Patient: Greater than 30
[2020-03-17 06:08] LABS: Basophils # (A) 0.1 k/uL (0-0.2); Basophils % (A) 1 %; Eosinophils # (A) 0.5 k/uL (0-0.7); Eosinophils % (A) 7 %; HCT 36.8 % (34.0-46.0); HGB 11.5 gm/dL (11.4-16.0); Hypochromasia Moderate; Lymphocytes # (A) 1.9 k/uL (1.0-4.8); Lymphocytes % (A) 29 %; MCH 26.5 pg (25.0-35.0); MCHC 31.2 g/dL (31.0-37.0); Mean Platelet Volume 8.8; Monocytes # (A) 0.6 k/uL (0-1.0); Monocytes % (A) 9 %; Neutrophils # (A) 3.5 k/uL (1.3-7.7); Neutrophils % (A) 52 %; Platelet Count 203 k/uL (150-450); RBC 4.33 m/uL (3.80-5.40); RDW 14.4 % (11.5-15.5); WBC 6.7 k/uL (3.8-10.6)
[2020-03-17 06:17] LABS: Calcium 8.5 mg/dL (8.4-10.2); Potassium 4.4 mmol/L (3.5-5.1)
[2020-03-17] MEDS: PANTOPRAZOLE 40 MG TABLET PO SCH (06:52)
[2020-03-17] MEDS: carvediloL 3.125 MG TAB PO SCH (06:52)
[2020-03-17] MEDS: Acetaminophen-Codeine 300-30mg TAB PO PRN (06:56)
[2020-03-17] MEDS: FLUoxetine HCL 20 MG CAP PO SCH (07:51)
[2020-03-17] MEDS: LORATADINE 10 MG TAB PO SCH (07:51)
[2020-03-17] MEDS: DOCUSATE 100 MG CAP PO SCH ×2 (07:51→10:20)
[2020-03-17] MEDS: CLOPIDOGREL 75 MG TAB PO SCH (07:51)
[2020-03-17] MEDS: APIXABAN 5 MG TAB PO SCH (07:51)
[2020-03-17] MEDS: GABAPENTIN 300 MG CAP PO SCH (07:51)
[2020-03-17 08:30] VITALS: RESP 16; TEMP 97.6
[2020-03-17 09:00] VITALS: BP 162/79; PULSE 54
[2020-03-17] MEDS ORDERED: LIDOCAINE 5% PATCH TOPICAL SCH (10:30)
[2020-03-17] MEDS: IOPAMIDOL CONTRAST (ORAL USE) VIAL PO PRN ×2 (10:49→11:55)
--- NOTE | 2020-03-17 13:04 | CT ---
EXAMINATION TYPE: CT abdomen pelvis w con DATE OF EXAM: 03/17/2020 COMPARISON: CT 08/13/2016 HISTORY: Pain, tenderness and IBS and diverticulosis CT DLP: 1188 mGycm Automated exposure control for dose reduction was used. TECHNIQUE: Helical acquisition of images from the lung bases through the pelvis have been completed. CONTRAST: Performed with Oral Contrast and with IV Contrast, patient injected with 100 ml mL of Isovue 300. FINDINGS: Patient is post median sternotomy. There are coronary artery calcifications. Thickening of the gastric wall may be due to lack of distention but is indeterminate. LUNG BASES: No significant abnormality is appreciated. AORTA: There are atheromatous changes. Infrarenal abdominal aorta measures approximately 3 cm in gre atest dimension. LIVER/GB: Patient is post cholecystectomy. There are dilated intrahepatic and extrahepatic biliary du cts. Liver shows no mass. PANCREAS: No significant abnormality is seen. SPLEEN: No significant abnormality is seen. ADRENALS: No significant abnormality is seen. KIDNEYS: No significant abnormality is seen. REPRODUCTIVE ORGANS: Uterus and adnexal structures are not seen. BOWEL: Sigmoid colon shows diverticular change, wall thickening, difficult to exclude a mucosal lesi on. No evident bowel obstruction. Retained fecal debris present throughout the colon. FREE AIR: No Free Air visible. ASCITES: None visible. PELVIC ADENOPATHY: None visualized. RETROPERITONEAL ADENOPATHY: No Retroperitoneal Adenopathy visible. URINARY BLADDER: No significant abnormality is seen. OSSEOUS STRUCTURES: No significant abnormality is seen. IMPRESSION: CORRELATE FOR FECAL STASIS. DIVERTICULOSIS. POSTOP CHANGES AND ADDITIONAL FINDINGS ABOVE.
--- NOTE | 2020-03-17 13:29 | P.DS ---
Providers Date of admission: 03/14/20 17:16 Attending physician: Reshma Irizarry Consults: 03/14/20 17:16 Consult Physician Stat Consulting Provider: Guy Robertson Consult Reason/Comments: Chest pain Do you want consulting provider notified?: Yes Primary care physician: Forest Suresh Hospital Course: Diagnoses: Atypical chest pain with a known history of coronary artery disease. Ruled out ACS. Cardiology cleared the patient for discharge and the pain is resolved Cramping abdominal pain and tenderness. Sinusitis with postnasal drip Paroxysmal atrial fibrillation on anticoagulation with Eliquis. Left sciatic nerve pain. No leg weakness lumbar radiculopathy, lumbar spinal stenosis Chronic back pain and weakness. Coronary artery disease history of bypass graft and stent placement Uncontrolled hypertension GERD Hyperlipidemia Peripheral vascular disease with history of femoral stent placement History of CVA/TIA Hospital course: Patient is a 79-year-old female with a known history of coronary artery disease status post bypass graft, stent placement, GERD, hypertension, hyperlipidemia, peripheral vascular disease and history of CVA/TIA without residual deficit and sciatic pain came to ER with the complaints of intermittent chest pain on and off of one-day duration, associate programmer analyst evaluated the patient, she underwent stress test which was negative. And cardiology cleared her for discharge to follow up as an outpatient. On the day of discharge patient chest pain is completely resolved, she does chest pain or dyspnea to me she is breathing quietly However patient has been having cramping abdominal pain especially in the LUQ and both lower abdomen sites, CT of the abdomen and pelvis: Fecal stasis.: Wall thickening. Diverticulosis. Postop changes from her cholecystectomy later on patient was seen sitting in chair, not in distress but complaining from pain and eating her diet with good appetite. Patient instructed to follow up with her rotary drill operator helper, she said she really has rotary drill operator helper who did colonoscopy for her earlier this year or last year and she intends to go back to him. Her GI symptoms subsided significantly and patient can go home Patient has low back pain with sciatica However she can raise her legs with no difficulties well embedded, no leg weakness. She was a walker to ambulate Patient is complaining of from sinusitis of the right is small intact and passed out sinuses with some tenderness and postnasal drip, she is on Flonase and Claritin and follow-up as an outpatient Patient was cleared for discharge by associate programmer analyst Problems and management plan were discussed with the patient and he verbalized understanding and acceptance Patient was found stable and can be discharged home however he needs follow-up as an outpatient. Patient was instructed to follow up with PCP within one week and patient agrees. Patient states that she has an appointment with her PCP this week with Dr. suresh. Also patient was instructed to follow up with Dr. Vyas the rotary drill operator helper in 2 weeks and the associate programmer analyst. Patient states that she has her own rotary drill operator helper and associate programmer analyst and she will follow up with them, patient stated that she will make her own appointment Gen: patient is a AAOx3, no distress CVS: S1-S2, RRR, no murmur Lungs: B/L CTA, no wheezing Abdomen: soft, no distention, no tenderness, positive bowel sounds Extremity: no leg edema or induration Time spent more than 35 minutes Patient Condition at Discharge: Stable Plan - Discharge Summary New Discharge Prescriptions: Continue Gabapentin [Neurontin] 300 mg PO TID Fluticasone Nasal [place] [Flonase Nasal [place]] 1 spray EA NOSTRIL DAILY PRN PRN Reason: Allergy Symptoms Albuterol Sulfate [Albuterol Sulfate Hfa] 1 puff PO RT-Q6H PRN PRN Reason: Shortness Of Breath Zolpidem Tartrate [Ambien] 5 mg PO HS Metoclopramide HCl [Reglan] 5 mg PO TID PRN PRN Reason: Nausea Loratadine [Claritin] 10 mg PO DAILY Omeprazole 20 mg PO DAILY Clopidogrel Bisulfate [Plavix] 75 mg PO DAILY Carvedilol [Coreg] 3.125 mg PO BID Apixaban [Eliquis] 5 mg PO BID Acetaminophen-Codeine 300-30mg [Tylenol w/codeine #3] 1 tab PO Q6H PRN PRN Reason: Pain Discharge Medication List Gabapentin [Neurontin] 300 mg PO TID 08/07/16 [History] Acetaminophen-Codeine 300-30mg [Tylenol w/codeine #3] 1 tab PO Q6H PRN 03/14/20 [History] Albuterol Sulfate [Albuterol Sulfate Hfa] 1 puff PO RT-Q6H PRN 03/14/20 [History] Apixaban [Eliquis] 5 mg PO BID 03/14/20 [History] Carvedilol [Coreg] 3.125 mg PO BID 03/14/20 [History] Clopidogrel Bisulfate [Plavix] 75 mg PO DAILY 03/14/20 [History] Fluticasone Nasal [place] [Flonase Nasal [place]] 1 spray EA NOSTRIL DAILY PRN 03/14/20 [History] Loratadine [Claritin] 10 mg PO DAILY 03/14/20 [History] Metoclopramide HCl [Reglan] 5 mg PO TID PRN 03/14/20 [History] Omeprazole 20 mg PO DAILY 03/14/20 [History] Zolpidem Tartrate [Ambien] 5 mg PO HS 03/14/20 [History] Follow up Appointment(s)/Referral(s): Forest Suresh DO [Primary Care Provider] - 1-2 days Discharge Disposition: HOME SELF-CARE
== END 2020-03-17 14:32 | disposition home or self-care (01) ==
LOC: EC 15:55 → 3NCARDOBS 17:16
PROVIDERS: ADMIT Internal Medicine; ATTEND Internal Medicine
DX: R07.89 Other chest pain (principal); M54.16 Radiculopathy, lumbar region; M48.061 Spinal stenosis, lumbar region without neurogenic claudication; G89.29 Other chronic pain; I25.10 Atherosclerotic heart disease of native coronary artery without angina pectoris; I48.0 Paroxysmal atrial fibrillation; I10 Essential (primary) hypertension; I73.9 Peripheral vascular disease, unspecified; I65.29 Occlusion and stenosis of unspecified carotid artery; Z20.828 Contact with and (suspected) exposure to other viral communicable diseases; I45.10 Unspecified right bundle-branch block; K57.90 Diverticulosis of intestine, part unspecified, without perforation or abscess without bleeding; J32.9 Chronic sinusitis, unspecified; K21.9 Gastro-esophageal reflux disease without esophagitis; H91.90 Unspecified hearing loss, unspecified ear; E78.5 Hyperlipidemia, unspecified; K58.9 Irritable bowel syndrome, unspecified; F41.9 Anxiety disorder, unspecified; F17.200 Nicotine dependence, unspecified, uncomplicated; R42 Dizziness and giddiness; R11.10 Vomiting, unspecified; R51 Headache; F32.9 Major depressive disorder, single episode, unspecified; R53.1 Weakness; R00.1 Bradycardia, unspecified; Z79.02 Long term (current) use of antithrombotics/antiplatelets; Z79.82 Long term (current) use of aspirin; Z79.01 Long term (current) use of anticoagulants; Z79.891 Long term (current) use of opiate analgesic; Z79.899 Other long term (current) drug therapy; Z88.0 Allergy status to penicillin; Z95.1 Presence of aortocoronary bypass graft; Z95.828 Presence of other vascular implants and grafts; Z90.49 Acquired absence of other specified parts of digestive tract; Z96.652 Presence of left artificial knee joint; Z90.710 Acquired absence of both cervix and uterus; Z86.73 Personal history of transient ischemic attack (TIA), and cerebral infarction without residual deficits; Z95.5 Presence of coronary angioplasty implant and graft; Z82.3 Family history of stroke; Z82.49 Family history of ischemic heart disease and other diseases of the circulatory system; Z80.9 Family history of malignant neoplasm, unspecified
CPT/HCPCS: 93005 ×2; 96375 ×2; 96376 ×2; 96374; 99285; 36415; 94640; 85379; 83880; 80061; 80053 ×2; 80048; 84443; 83735; 84484; 85025 ×3; 85610; 85730; 71046; 70450; 74177; G0378 ×4; U0003; J2270 ×2; J2405 ×2; J1885; Q9967